=== PATIENT | male | born 1940 | race Caucasian/White ===

== ENCOUNTER 2016-11-22 10:20 | Outpatient (CLI) | payer MEDICARE | END 2016-11-22 10:21 | disposition home or self-care (01) | DX: M19.041 Primary osteoarthritis, right hand (principal); M19.042 Primary osteoarthritis, left hand; L40.9 Psoriasis, unspecified ==

== ENCOUNTER 2018-05-31 14:41 | Emergency (ER) | payer MEDICARE ==
[2018-05-31 14:48] VITALS: BP 145/82
--- NOTE | 2018-05-31 15:16 | XRAY Report ---
Procedure Date: 05/31/2018 Accession Number: [id number] / [id number] Procedure: XR - Finger(s) LT CPT Code: FULL RESULT: EXAM: LEFT FIFTH DIGIT RADIOGRAPHY EXAM DATE: 05/31/2018 03:06 PM. CLINICAL HISTORY: Cut with an electric saw. COMPARISON: None. TECHNIQUE: 3 views. FINDINGS: Bones: Acute traumatic amputation of the distal medial aspect of the left fifth distal phalanx tuft. Mild nondisplaced fracture of the distal lateral aspect of the left fifth phalanx tuft. No extension into the body or base. Joints: Normal. No subluxations. Soft Tissues: Status post soft tissue amputation of the distal aspect of the left fifth finger. IMPRESSION: 1. Acute traumatic amputation of the distal medial left fifth distal phalanx tuft. Nondisplaced fracture of the lateral left fifth distal phalanx tuft. 2. Soft tissue amputation in the distal left fifth finger. 3. No malalignment. RADIA
[2018-05-31] MEDS ORDERED: BUPIVACAINE 0.5% PF 10 ML VIAL SUBQ STA (15:26)
[2018-05-31] MEDS ORDERED: TETANUS/DIPHTHERIA/PERTUSSIS 0.5 ML SYRINGE IM ONE (15:27)
--- NOTE | 2018-05-31 15:28 | ED Physician Documentation ---
PD HPI UPPER EXT INJURY - Stated complaint Stated Complaint: L PINKY LAC - Chief complaint Chief Complaint: Laceration - History obtained from History obtained from: Patient - History of Present Illness Location: Left (Right-handed gentleman who is not up-to-date on tetanus cut his left pinky with a saw at home just prior to arrival. Pain is moderate to severe. No other injuries.) Review of Systems Ten Systems: 10 systems reviewed and negative Constitutional: reports: Reviewed and negative Nose: reports: Reviewed and negative Throat: reports: Reviewed and negative PD PAST MEDICAL HISTORY - Past Medical History Cardiovascular: Hypertension, High cholesterol Respiratory: None Endocrine/Autoimmune: None GI: Ulcers : Frequency HEENT: Other Psych: None Musculoskeletal: None Derm: None - Past Surgical History Past Surgical History: Yes General: Cholecystectomy HEENT: Tonsil/Adenoidectomy - Present Medications Home Medications: Ambulatory Orders Medication Instructions Recorded Confirmed Amitriptyline HCl 25 mg PO 09/11/13 09/11/13 Atenolol [Tenormin] 50 mg PO DAILY 09/11/13 09/11/13 Hydrochlorothiazide 25 mg PO 09/11/13 09/11/13 Simvastatin [Zocor] 10 mg PO QPM 09/11/13 09/11/13 cephALEXin [Keflex] 500 mg PO Q6H #28 capsule 09/11/13 Cephalexin [Keflex] 500 mg PO QID #30 capsule 05/31/18 HYDROcod/ACETAM 5/325 [[place] 5/325] 1 - 2 ea PO Q6H PRN #15 tablet 05/31/18 - Allergies Allergies/Adverse Reactions: Allergies Allergy/AdvReac Type Severity Reaction Status Date / Time No Known Drug Allergies Allergy Verified 05/31/18 14:48 - Social History Does the pt smoke?: No Smoking Status: Never smoker Does the pt drink ETOH?: No Does the pt have substance abuse?: No - Family History Family history: reports: Non contributory - Immunizations Immunizations are current?: No Immunizations: TDAP >10years/unknown - POLST Patient has POLST: No PD ED PE NORMAL - Vitals Vital signs reviewed: Yes - General General: Alert and oriented X 3, No acute distress - HEENT HEENT: PERRL, EOMI - Neck Neck: Supple, no meningeal sign, No bony TTP - Cardiac Cardiac: RRR, No murmur - Respiratory Respiratory: No respiratory distress, Clear bilaterally - Abdomen Abdomen: Normal bowel sounds, Soft, Non tender - Extremities Extremities: Other (The ulnar side and tip of the left fifth finger is gone with about half of the nail missing and exposed bone.) - Neuro Neuro: Alert and oriented X 3, Normal speech Results - Vitals Vitals: Vital Signs - 24 hr 05/31/18 14:44 Temperature 36.1 C L Heart Rate 74 Respiratory 18 Rate Blood Pressure 145/82 H O2 Saturation 97 Oxygen O2 Source Room air - Rads (name of study) L 5th finger Radiology: EMP read contemporaneously (Traumatic amputation of the tuft of the fifth finger.) Procedures - Laceration (location) L 5th finger Length in cm: 2 Wound type: Other (It was a fingertip amputation involving bone) Anesthesia: Marcaine 0.5% (Digital block) Wound Preparation: Irrigated copiously NS, Debrided extensively, Other (The tuft was rongeured back which created enough of a flap that I was able to close the tip with 2 sutures without much tension.) Skin layer closure: Nylon, Interrupted, Size #-0 - enter number (4-0), Sutures - enter # (2) Other: Patient tolerated well, No complications, Neurovascular intact, Tetanus booster given Complexity: Intermediate PD MEDICAL DECISION MAKING - Consults Consults: Consulted (name) (Barry Quinonez, contact and service clerks supervisor orth- saw pt and rec rongeuring back bone) - Sepsis Event Vital Signs: Vital Signs - 24 hr 05/31/18 14:44 Temperature 36.1 C L Heart Rate 74 Respiratory 18 Rate Blood Pressure 145/82 H O2 Saturation 97 Oxygen O2 Source Room air Departure - Departure Disposition: 01 Home, Self Care Clinical Impression: Laceration, Open fracture of tuft of distal phalanx of finger Fingertip amputation Qualifiers: Encounter type: initial encounter Qualified Code(s): S68.129A - Partial traumatic metacarpophalangeal amputation of unspecified finger, initial encounter Condition: Good Record reviewed to determine appropriate education?: Yes Instructions: ED Fx Finger Open Follow-Up: [facility] [Provider Group] (Call Sunday for wound check next week and suture removal at the end of the week after.) Prescriptions: Cephalexin [Keflex] 500 mg PO QID #30 capsule HYDROcod/ACETAM 5/325 [[place] 5/325] 1 - 2 ea PO Q6H PRN #15 tablet PRN Reason: Pain Comments: Your blood pressure was elevated today on check into the emergency department. This does not mean that you have hypertension, it is a common phenomenon to come to the emergency department and have elevated blood pressure. I recommend that you see your primary care physician within the week to have it rechecked when you are feeling better.
[2018-05-31] MEDS ORDERED: cephALEXin 250 MG CAPSULE PO STA (15:58)
== END 2018-05-31 16:11 | disposition home or self-care (01) ==
LOC: ED 14:41
DX: S68.127A Partial traumatic metacarpophalangeal amputation of left little finger, initial encounter (principal); W29.8XXA Contact with other powered hand tools and household machinery, initial encounter; Y92.009 Unspecified place in unspecified non-institutional (private) residence as the place of occurrence of the external cause; Z23 Encounter for immunization; I10 Essential (primary) hypertension; E78.00 Pure hypercholesterolemia, unspecified
CPT/HCPCS: 13131; 73140; 90471; 90715; 99283; 99284; A9270

== ENCOUNTER 2018-06-22 09:47 | Outpatient (CLI) | payer MEDICARE ==
--- NOTE | 2018-06-22 14:25 | XRAY Report ---
Reason: L SIDED NECK PAIN AND HEADACHE Procedure Date: 06/22/2018 Accession Number: [id number] / [id number] Procedure: XR - Cervical Spine Complete CPT Code: FULL RESULT: EXAM: CERVICAL SPINE RADIOGRAPHY EXAM DATE: 06/22/2018 10:42 AM. CLINICAL HISTORY: L SIDED NECK PAIN AND HEADACHE. COMPARISONS: 01/20/2016. TECHNIQUE: 6 views. FINDINGS: Alignment: Mild right convex cervical spine curvature, as before. 2 mm spondylotic anterolisthesis C3 on C4, increased from before. Bones: The cervical vertebral bodies and posterior elements are well-visualized from the skull base through C7-T1. No fractures or bone lesions. Disks: Disk height loss and endplate osteophyte indicating degenerative disk disease which is mild at C2-C3, C4-C5, and C6-C7, similar to before. Facets: Mild bilateral facet osteoarthritis throughout the upper to mid cervical spine. Neural Foramina: Uncovertebral joint hypertrophy and bony foraminal stenosis mild on the right at C3-C4 and C4-C5, mild on the left and C3-C4, moderate on the left at C4-C5, similar to before. Soft Tissues: Normal. No prevertebral soft tissue swelling. The visualized lung apices are clear. IMPRESSION: 1. 1. Mild degenerative disk disease at C2-C3, C4-C5, C5-C6, similar to before. 2. Disk loss and uncovertebral joint hypertrophy contributing to bony foraminal stenosis which is mild bilaterally at C3-C4, mild on the right and moderate on the left at C4-C5, similar to before. 3. Mild multilevel bilateral cervical facet osteoarthritis. Increased spondylotic 2 mm anterolisthesis C3 on C4. RADIA
== END 2018-06-22 09:48 | disposition home or self-care (01) ==
LOC: DI 09:47
PROVIDERS: ATTEND Nurse Practitioner Family
DX: M50.31 Other cervical disc degeneration, high cervical region (principal); M47.892 Other spondylosis, cervical region; M43.12 Spondylolisthesis, cervical region; M48.02 Spinal stenosis, cervical region
CPT/HCPCS: 72050

== ENCOUNTER 2019-12-11 07:37 | Day surgery (SDC) | payer MEDICARE ==
[~2019-12-11 07:37] MED LIST: BRIMONIDINE 0.2% OPHTH DROPS 5 ML ONE; BSS/LIDOCAINE/EPINEPHRINE 1 ML SYRINGE ONE; CYCLOPENTOLATE 1% OPHTH DROPS 2 ML ONE; KETOROLAC 0.45% OPHTH DROPS ONE; PHENYLEPHRINE 2.5% OPHTH 2 ML DROPS ONE; PROPARACAINE 0.5% OPHTH DROPS 15 ML ONE; TRIAMCIN/MOXIFLOX OPHTHALMIC 0.6 ML VIAL IO ONE; VANCOMYCIN OPHTHALMI 8MG/0.8ML 8 MG/0.8 ML SYRINGE IO ONE; timoloL maleate 0.5% OPHTH DROPS (10ML) ONE
[2019-12-11] MEDS ORDERED: MIDAZOLAM 2 MG/2 ML VIAL IVP ONE (07:38)
[2019-12-11] MEDS ORDERED: LACTATED RINGERS 500 ML IV ONE (07:42)
[2019-12-11] MEDS ORDERED: CYCLOPENTOLATE 1% OPHTH DROPS 2 ML LEFTEYE ONE (07:55)
[2019-12-11] MEDS ORDERED: KETOROLAC 0.45% OPHTH DROPS LEFTEYE ONE (07:55)
[2019-12-11] MEDS ORDERED: PHENYLEPHRINE 2.5% OPHTH 2 ML DROPS LEFTEYE ONE (07:55)
[2019-12-11] MEDS ORDERED: PROPARACAINE 0.5% OPHTH DROPS 15 ML LEFTEYE ONE ×2 (07:55→09:20)
--- NOTE | 2019-12-11 08:30 | ANESTHESIA ---
Pre-Anesthesia VS, & Labs - Diagnosis left senile combined cataract - Procedure laser assisted cataract extraction with intraocular lens implant Vital Signs: Temp Pulse Resp BP Pulse Ox 36.1 C L 74 16 176/99 H 96 12/11/19 07:42 12/11/19 07:42 12/11/19 07:42 12/11/19 07:42 12/11/19 07:42 Height 5 ft 9 in Weight (kg) 81 kg Body Mass Index 25.8 - NPO >8 hours Home Medications and Allergies Home Medications: Ambulatory Orders PredniSONE [PredniSONE INTENSOL] 10 mg PO DAILY 12/10/19 Amitriptyline HCl 25 mg PO DAILY 09/11/13 Hydrochlorothiazide 25 mg PO DAILY 09/11/13 Simvastatin [Zocor] 10 mg PO QPM 09/11/13 PredniSONE [PredniSONE INTENSOL] 10 mg PO DAILY 12/10/19 Allergies/Adverse Reactions: Allergies Allergy/AdvReac Type Severity Reaction Status Date / Time No Known Drug Allergies Allergy Verified 05/31/18 14:48 Anes History & Medical History - Anesthetic History Anesthesia Complications: reports: No previous complications - Medical History Cardiovascular: reports: Hypertension, High cholesterol Pulmonary: reports: None Gastrointestinal: reports: Ulcers Urinary: reports: Frequency Musculoskeletal: reports: Osteoarthritis Endocrine/Autoimmune: reports: None Skin: reports: None Smoking Status: Never smoker - Surgical History General: Cholecystectomy, Bowel surgery Eyes Ears Nose Throat (EENT): Tonsil/Adenoidectomy Urologic: Prostatic surgery Exam General: Alert Dental: WNL Mouth Opening: Greater than 4 Fingerbreadths Neck Mobility: Normal Mallampati classification: II Thyromental Distance: greater than 6 cm Respiratory: Lungs clear Cardiovascular: Regular rate, Normal S1, Normal S2 Plan Anesthesia Type: MAC Consent for Procedure(s) Verified and Reviewed: Yes Code Status: Attempt Resuscitation ASA classification: 2-Mild systemic disease Is this case an emergency?: No
[2019-12-11] MEDS ORDERED: BRIMONIDINE 0.2% OPHTH DROPS 5 ML OPTH ONE (09:18)
[2019-12-11] MEDS ORDERED: EPINEPHrine 1 MG/ML AMP IVP ONE (09:18)
[2019-12-11] MEDS ORDERED: CHONDR SULF/HYALURONATE SYRINGE IO ONE (09:19)
[2019-12-11] MEDS ORDERED: BSS/LIDOCAINE/EPINEPHRINE 1 ML SYRINGE IO ONE (09:19)
[2019-12-11] MEDS ORDERED: TIMOLOL 0.5% OPHTH DROPS OPTH ONE (09:19)
[2019-12-11] MEDS ORDERED: TRIAMCIN/MOXIFLOX OPHTHALMIC 0.6 ML VIAL IO ONE (09:21)
[2019-12-11] MEDS ORDERED: VANCOMYCIN OPHTHALMI 8MG/0.8ML 8 MG/0.8 ML SYRINGE IO ONE (09:22)
[2019-12-11 09:52] VITALS: BP 149/78
--- NOTE | 2019-12-11 11:47 | OPERATIVE REPORT ---
DATE OF SERVICE: 12/11/2019 Physician: Bunny Quijano MD PREOPERATIVE DIAGNOSIS: Visually significant cataract, left eye. This was his first cataract surgery. POSTOPERATIVE DIAGNOSIS: Visually significant cataract, left eye. This was his first cataract surgery. DESCRIPTION OF PROCEDURE: Phacoemulsification with posterior chamber intraocular lens implant, left eye with laser assist. SURGEON: Bunny Quijano MD ANESTHESIA: Monitored anesthesia care. COMPLICATIONS: None. OPERATIVE INDICATIONS: This is a 79-year-old man with progressive vision loss in the left eye due to 2+ nuclear sclerotic and 3+ cortical cataract. Best corrected visual acuity was 20/40, with glare to 20/60 in the left eye. Indications for surgery are overall decrease in vision, difficulty seeing words on a computer screen, difficulty reading, difficulty driving in low light or at night, and difficulty driving at night because of headlights from other vehicles. He was consented at length concerning risks and benefits of cataract surgery, after which he expressed a desire to proceed with surgery. OPERATIVE PROCEDURE: Patient was taken to OR #3 and placed under monitored anesthesia care. A surgical timeout was conducted confirming correct patient, correct procedure, and correct surgical site. He was placed under the LenSx laser and his eye docked with the laser interface. The laser performed the capsulotomy, lens softening, phaco wounds, and arcuate keratotomy incisions. He was then moved to the operating microscope, given topical anesthesia, and then prepped and draped in the usual sterile fashion. The eye was entered at the 6 and 3 o'clock positions. Intracameral Shugarcaine was injected into the anterior chamber, followed by Viscoat. The capsulorrhexis flap created by the LenSx laser was removed from the anterior chamber. The nucleus was hydrodissected and phacoemulsified. The cortex was evacuated using automated infusion and aspiration. Provisc was injected in the capsular bag, and a 21.0 diopter intraocular lens inserted in the bag. Infusion and aspiration was used to evacuate the viscoelastic materials. The eye was inflated to physiologic pressure using balanced salt solution and found to be watertight. Approximately 0.25 mL of a mixture of triamcinolone and moxifloxacin was injected transsclerally into the vitreous in the inferotemporal quadrant. An additional 0.55 mL of a mixture of triamcinolone, moxifloxacin, and vancomycin was injected subconjunctivally in the superior quadrant for infection and inflammation prophylaxis. Wound integrity was checked with a Weck-Lorena sponge. Patient was taken from the operating room in good condition and given postoperative instructions. TD: 12/11/2019 09:47 MTDShalini
== END 2019-12-11 07:38 | disposition home or self-care (01) ==
LOC: SDS 07:37
PROVIDERS: ATTEND Ophthalmology
PROC: 08RK3JZ Replacement of Left Lens with Synthetic Substitute, Percutaneous Approach (ICD-10-PCS; principal; 2019-12-11 09:00)
DX: H25.812 Combined forms of age-related cataract, left eye (principal); I10 Essential (primary) hypertension; Z87.891 Personal history of nicotine dependence
CPT/HCPCS: 66984; A9270; J3490; V2632

== ENCOUNTER 2020-01-15 11:20 | Outpatient (CLI) | payer MEDICARE | END 2020-01-15 11:21 | disposition home or self-care (01) | LOC: LAB.S 11:20 | PROVIDERS: ATTEND Registered Nurse | DX: M35.3 Polymyalgia rheumatica (principal) | CPT/HCPCS: 36415; 85651; 86140 ==

== ENCOUNTER 2020-07-12 11:05 | Outpatient (CLI) | payer MEDICARE ==
--- NOTE | 2020-07-12 17:16 | XRAY Report ---
PROCEDURE: Shoulder 3 View RT INDICATIONS: OSTEOARTHRITIS OF RIGHT SHOULDER JOINT TECHNIQUE: 3 views of the shoulder were acquired. COMPARISON: None. FINDINGS: Bones: No fractures or dislocations. No suspicious bony lesions. Visualized ribs appear intact. M ild acromioclavicular joint and glenohumeral joint arthritis. Soft tissues: Calcifications noted adjacent to the lateral margin of the humeral head most compatible with calcific tendinitis. IMPRESSION: 1. Mild acromioclavicular joint and glenohumeral joint osteoarthritis. 2. Rotator cuff calcific tendinitis. Reviewed by: Ame Velazquez MD, PhD on 07/12/2020 5:15 PM PDT Approved by: Ame Velazquez MD, PhD on 07/12/2020 5:15 PM PDT Station ID: [id number]
== END 2020-07-12 11:06 | disposition home or self-care (01) ==
LOC: DI.S 11:05
PROVIDERS: ATTEND Registered Nurse
DX: M19.011 Primary osteoarthritis, right shoulder (principal); M75.31 Calcific tendinitis of right shoulder

== ENCOUNTER 2021-05-04 10:18 | Outpatient (CLI) | payer MEDICARE ==
[2021-05-04 15:31] LABS: BILIRUBIN,URINE NEGATIVE (NEGATIVE); CLARITY,URINE CLEAR (CLEAR); GLUCOSE, URINE (UA) NEGATIVE (NEGATIVE); KETONES,URINE (UA) NEGATIVE (NEGATIVE); LEUKOCYTE ESTERASE, URINE NEGATIVE (NEGATIVE); NITRITE,URINE NEGATIVE (NEGATIVE); OCCULT BLOOD,URINE SMALL (NEGATIVE); PROTEIN,URINE NEGATIVE (NEGATIVE); UROBILINOGEN,URINE 0.2 (NORMAL) E.U./dL (NORMAL)
[2021-05-04 15:39] LABS: BACTERIA,URINE None Seen /HPF (None Seen); RBC,URINE 0-5 /HPF (0-5); SQUAMOUS EPITHELIAL CELL,UR RARE Squamous (<= Few); WBC,URINE 0-3 /HPF (0-3)
== END 2021-05-04 10:19 | disposition home or self-care (01) ==
LOC: LAB.S 10:18
PROVIDERS: ATTEND Registered Nurse
DX: R31.9 Hematuria, unspecified (principal); M35.3 Polymyalgia rheumatica
CPT/HCPCS: 36415; 81001; 85651; 86140; 87086

== ENCOUNTER 2021-08-08 08:00 | Outpatient (CLI) | payer MEDICARE ==
--- NOTE | 2021-08-08 15:31 | XRAY Report ---
PROCEDURE: Finger(s) LT INDICATIONS: FINGER ANOMALY. Left thumb table saw laceration. TECHNIQUE: AP hand, 2 views of the first finger(s) acquired. COMPARISON: May 31, 2018 FINDINGS: BONES: No acute, displaced fracture or dislocation. An deficiency of the second and fifth distal phal anx marlen, which may reflect remote amputation injury. Degenerative changes of the first carpometacar pal and interphalangeal articulations with joint space loss and osteophytosis. The carpal bones are normally aligned. SOFT TISSUES: Linear defect in the soft tissues overlying the first distal phalanx tuft, likely refle cting the patient's laceration injury. No radiopaque foreign body. IMPRESSION: 1.No acute osseous abnormality. Reviewed by: Jesus Manuel Amin MD on 08/08/2021 3:30 PM PDT Approved by: Jesus Manuel Amin MD on 08/08/2021 3:30 PM PDT Station ID: [id number]
== END 2021-08-08 23:59 | disposition home or self-care (01) ==
LOC: DI.S 08:00
PROVIDERS: ATTEND Physician Assistant Medical
DX: Q74.9 Unspecified congenital malformation of limb(s) (principal)

== ENCOUNTER 2021-09-07 08:00 | Outpatient (CLI) | payer MEDICARE ==
[2021-09-07 14:48] LABS: BILIRUBIN,URINE NEGATIVE (NEGATIVE); GLUCOSE, URINE (UA) NEGATIVE (NEGATIVE); KETONES,URINE (UA) NEGATIVE (NEGATIVE); LEUKOCYTE ESTERASE, URINE MODERATE (NEGATIVE); NITRITE,URINE NEGATIVE (NEGATIVE); OCCULT BLOOD,URINE LARGE (NEGATIVE); PROTEIN,URINE 100 mg/dL (NEGATIVE); UROBILINOGEN,URINE 0.2 (NORMAL) E.U./dL (NORMAL)
[2021-09-07 14:50] LABS: CLARITY,URINE CLOUDY (CLEAR)
[2021-09-07 15:18] LABS: AMORPHOUS SEDIMENT,UR Rare /LPF; BACTERIA,URINE Moderate /HPF (None Seen); RBC,URINE TNTC /HPF (0-5); SQUAMOUS EPITHELIAL CELL,UR RARE Squamous (<= Few); WBC CLUMPS,URINE PRESENT; WBC,URINE >25 /HPF (0-3)
== END 2021-09-07 23:59 | disposition home or self-care (01) ==
LOC: LAB.S 08:00
PROVIDERS: ATTEND Emergency Medicine
DX: R30.0 Dysuria (principal)
CPT/HCPCS: 81001; 87086; 87181

== ENCOUNTER 2022-03-02 10:50 | Outpatient (CLI) | payer MEDICARE ==
[2022-03-02 15:55] LABS: CREATININE 0.9 mg/dL (0.6-1.2); POTASSIUM 3.2 mmol/L (3.5-5.0)
[2022-03-02 17:20] LABS: RHEUMATOID FACTOR NEGATIVE (Negative)
[2022-03-06 14:08] LABS: A/G RATIO 1.1 (0.7-1.7); ALBUMIN 3.8 g/dL (2.9-4.4); ALPHA-1-GLOBULIN 0.2 g/dL (0.0-0.4); ALPHA-2-GLOBULIN 0.9 g/dL (0.4-1.0); BETA GLOBULIN 1.1 g/dL (0.7-1.3); GAMMA GLOBULIN 1.2 g/dL (0.4-1.8); GLOBULIN, TOTAL 3.4 g/dL (2.2-3.9); PROTEIN TOTAL 7.2 g/dL (6.0-8.5)
== END 2022-03-02 10:51 | disposition home or self-care (01) ==
LOC: LAB.S 10:50
PROVIDERS: ATTEND Internal Medicine Rheumatology
DX: M35.3 Polymyalgia rheumatica (principal); M25.50 Pain in unspecified joint
CPT/HCPCS: 36415; 80048; 81599; 82550; 82784; 84155; 84165; 85651; 86140; 86200; 86334; 86430

== ENCOUNTER 2024-01-11 07:00 | Outpatient (CLI) | payer MEDICARE ==
[2024-01-11 15:38] LABS: BILIRUBIN,URINE NEGATIVE (NEGATIVE); GLUCOSE, URINE (UA) NEGATIVE (NEGATIVE); KETONES,URINE (UA) NEGATIVE (NEGATIVE); LEUKOCYTE ESTERASE, URINE SMALL (NEGATIVE); NITRITE,URINE NEGATIVE (NEGATIVE); OCCULT BLOOD,URINE SMALL (NEGATIVE); PH,URINE 5.5 PH (5.0-7.5); PROTEIN,URINE NEGATIVE (NEGATIVE); UROBILINOGEN,URINE 0.2 (NORMAL) E.U./dL (NORMAL)
[2024-01-11 15:42] LABS: CLARITY,URINE HAZY (CLEAR)
[2024-01-11 15:54] LABS: BACTERIA,URINE Moderate /HPF (None Seen); SQUAMOUS EPITHELIAL CELL,UR NONE SEEN (<= Few)
== END 2024-01-11 23:59 | disposition home or self-care (01) ==
LOC: LAB.S 07:00
PROVIDERS: ATTEND Emergency Medicine
DX: N39.0 Urinary tract infection, site not specified (principal)
CPT/HCPCS: 81001; 87086; 87181

== ENCOUNTER 2024-03-10 11:43 | Outpatient (CLI) | payer MEDICARE ==
[2024-03-10] MEDS ORDERED: DIATRIZOATE MEGLU/DIATRIZO SOD 30 ML BOTTLE PO ONE (11:46)
[2024-03-10] MEDS ORDERED: iohexoL-300 100 ML VIAL ONE (11:46)
[2024-03-10] MEDS: iohexoL-300 100 ML VIAL IVP ONE (13:56)
[2024-03-10] MEDS: DIATRIZOATE MEGLU/DIATRIZO SOD 30 ML BOTTLE PO ONE (13:57)
--- NOTE | 2024-03-10 15:58 | CT Report ---
PROCEDURE: Abdomen/Pelvis W INDICATIONS: PNEUMATURIA CONTRAST: Omni 300 100ml TECHNIQUE: After the administration of intravenous contrast, a CT scan of the abdomen and pelvis was performed. Images were recorded and evaluated at appropriate window settings. Reformats: coronal and sagittal. F or radiation dose reduction, the following was used: automated exposure control, adjustment of mA and /or kV according to patient size. COMPARISON: None FINDINGS: Image quality: Diagnostic Lower chest: Scattered scarring and atelectasis. No hiatal hernia. Normal heart size where visualized . There are coronary calcifications Liver: Multiple small hypoattenuating lesions are too small to characterize, usually cysts or hemangi omas. Consider follow-up if there is a history of malignancy. Gallbladder and biliary system: Absent, nondilated allowing for postsurgical state Pancreas: No ductal dilation Spleen: Nonenlarged Adrenals: No discrete nodules Kidneys: No solid mass or hydronephrosis. Nonobstructing right calyceal 9 mm calculus is present. Sub centimeter lesions are too small to characterize, usually cysts in the kidneys. Mild bilateral pelvie ctasis. No obstructing lesion. Vessels and lymph nodes: The main portal vein appears patent. No abdominal aortic aneurysm. No pathol ogic lymph nodes by size criteria. Bowel and peritoneum: No evidence of small bowel obstruction. Thick scarring versus soft tissue in th e presacral space measuring thickness of 2.3 cm. Rectal anal postsurgical changes are present. In thi s region, prominent mural fluid is seen measuring a thickness of 1 cm (sagittal image 105), in close proximity to the bladder neck. There are colonic diverticula. Moderate fecal loading. No drainable ri m-enhancing fluid collection is seen. The appendix appears nondilated. Body wall: Small fat-containing inguinal hernias. Anterior body wall post surgical changes. Pelvis: The bladder is mildly underdistended which limits evaluation. Mild wall thickening and perive sicular fat stranding are present. Bones: Degenerative changes. No acute or suspicious osseous finding. IMPRESSION: Postsurgical changes at the rectoanal junction, with prominent mural fluid in this region measuring a thickness of 1 cm (sagittal image 105). This is in close proximity to the bladder. Consider MRI for increased sensitivity for fistulous tract in the setting of pneumaturia. Presacral thick scarring versus soft tissue is indeterminate, consider follow-up imaging for surveill ance depending on clinical context. Bladder mild wall thickening and surrounding mild fat stranding, correlate urinalysis for infection. Other findings as above. Reviewed by: Joaquin Lorenz MD on 03/10/2024 3:57 PM PDT Approved by: Joaquin Lorenz MD on 03/10/2024 3:57 PM PDT Station ID: [id number]
== END 2024-03-10 11:44 | disposition home or self-care (01) ==
LOC: LAB 11:43
PROVIDERS: ATTEND Surgery
DX: R39.89 Other symptoms and signs involving the genitourinary system (principal); R93.89 Abnormal findings on diagnostic imaging of other specified body structures
CPT/HCPCS: 74177; Q9963; Q9967

== ENCOUNTER 2024-06-15 11:11 | Outpatient (CLI) | payer MEDICARE ==
--- NOTE | 2024-06-16 11:32 | Ultrasound Report ---
PROCEDURE: Duplex Ext Veins Left INDICATIONS: LLE PAIN, STASIS DERMATITIS OF LOWER LIMB TECHNIQUE: Real-time imaging, as well as color and pulse Doppler interrogation, were performed of the lower extr emity deep veins from the inguinal ligament to the popliteal fossa. Attempted visualization of the ca lf veins was performed. COMPARISON: None. FINDINGS: The deep veins are normally compressible, and free of intraluminal thrombus. Color and pu lse Doppler demonstrate normal phasic intraluminal flow. There is normal augmentation response to di stal compression maneuver. No fluid collection identified in the left lower leg in the area of pain. IMPRESSION: No deep venous thrombosis of the visualized lower extremity. Reviewed by: Gino Wade MD on 06/16/2024 11:31 AM PDT Approved by: Gino Wade MD on 06/16/2024 11:31 AM PDT Station ID: [id number]
== END 2024-06-15 11:12 | disposition home or self-care (01) ==
LOC: DI 11:11
PROVIDERS: ATTEND Nurse Practitioner Family
DX: I87.399 Chronic venous hypertension (idiopathic) with other complications of unspecified lower extremity (principal)